=== PATIENT | male | born 1990 | race Caucasian/White ===

== ENCOUNTER 2016-07-08 07:52 | Emergency (ER) ==
[2016-07-08 08:36] LABS: URINE CULTURE NEEDED? NO; URINE MICRO REVIEW NEEDED? NO; URINE SOURCE CLEAN CATCH
[2016-07-08 08:47] LABS: BILIRUBIN URINE NEGATIVE (NEGATIVE); BLOOD URINE NEGATIVE (NEGATIVE); COLOR YELLOW; GLUCOSE URINE NEGATIVE (NEGATIVE); LEUKOCYTES URINE NEGATIVE (NEGATIVE); NITRITE URINE NEGATIVE (NEGATIVE); PH URINE 6.5; PROTEIN URINE TRACE mg/dL (NEGATIVE); SP GRAVITY URINE 1.026; TURBIDITY URINE CLEAR (CLEAR); UROBILINOGEN URINE 4 mg/dL (NORMAL)
[2016-07-08 08:52] LABS: UR EPITHELIAL CELLS <10 /HPF (<10); URINE BACTERIA NEGATIVE /HPF; URINE RBC <10 /HPF (<10); URINE WBC <10 /HPF (<10)
--- NOTE | 2016-07-08 08:58 | PROVIDER DOCUMENTATION ---
HPI-General Adult - History of Present Illness -Gen Adult Nature of Presenting Problems: Russ presents with two days of intermittent flank pain that radiates to the back. He reports having left sided flank pain yesterday and feeling nauseated. The flank pain has returned today along with nausea and trouble urinating. He denies any gross blood in the urine, any bulging in his testicles , or one testicle larger than another. He denies fever, diarrhea, constipation , or SOB. Location of Pain/Injury: reports: abdomen (Left flank), back (Left flank with radiating) Pain Radiation: reports: flank (L) Quality of Pain: reports: aching, sharp Severity: reports: moderate Onset/Duration: reports: 24 hours ago Timing: reports: improving, intermittent Context/Activities at Onset: reports: none Modifying Factors: improves with: nothing Associated Symptoms: reports: back/neck pain (Lower left back radiation), nausea . denies: anxiety, chest pain, constipation, cough, diarrhea, EENT symptoms, genitourinary problems, shortness of breath, vomiting Similar Symptoms Previously?: Yes (Yesterday) Recently seen or treated by another doctor?: No <Santos Ulloa - Last Filed: 07/08/16 08:52> <Sly Goel - Last Filed: 07/08/16 13:39> - General Chief Complaint: Flank Pain Stated Complaint: kidney pain Time Seen by Provider: 07/08/16 08:39 Allergies/Adverse Reactions: Patient Allergies Allergy/AdvReac Type Severity Reaction Status Date / Time azithromycin [From Zithromax] Allergy HIVES Verified 07/08/16 09:12 egg Allergy HIVES Verified 07/08/16 09:12 Home Medications: Home Medication List Medication Instructions Recorded Confirmed Last Taken Type Ondansetron Odt [Zofran 4 mg Odt] 4 mg PO Q6H PRN PRN #10 tablet 07/08/16 Unknown Rx Pantoprazole [Protonix] 40 mg PO DAILY@0700 #30 tablet 07/08/16 Unknown Rx Tramadol [Ultram] 50 mg PO TID #30 tablet 07/08/16 Unknown Rx Review of Systems - Adult - REVIEW OF SYSTEMS - ADULT Constitutional: reports: see HPI. denies: chills, fever, night sweats, weight gain, weight loss Eyes: reports: no symptoms reported Ears, Nose, Mouth & Throat: reports: no symptoms reported Cardiovascular: reports: no symptoms reported, see HPI. denies: chest pain, palpitations Respiratory: reports: no symptoms reported, see HPI. denies: cough, dyspnea on exertion, shortness of breath Gastrointestinal: reports: abdominal pain (Left side), nausea. denies: hematemesis, constipation, diarrhea, rectal bleeding, vomiting Genitourinary: reports: flank pain, other (Reports some intermittent difficulty urinating with the flank pain). denies: dysuria, frequency, frequent UTI's, incontinence Integumentary: reports: no symptoms reported. denies: hives, itching Neurological: reports: no symptoms reported. denies: dizziness/vertigo, headache/migraines Psychiatric: reports: no symptoms reported. denies: alcohol/drug dependence Endocrine: reports: no symptoms reported. denies: change in skin pigment, increased thirst, polyuria Hematologic/Lymphatic: reports: no symptoms reported Allergic/Immunologic: reports: no symptoms reported All Other Systems: Reviewed and Negative <Santos Ulloa M - Last Filed: 07/08/16 08:52> Past History - Adult - PAST MEDICAL HISTORY-ADULT Review of Records: reports: Old Records Reviewed, Nursing Assessment Review, Medications Reviewed, Social history reviewed & non-contributory. Major Childhood Illnesses: reports: denies history Cardiovascular: reports: denies history Respiratory: reports: denies history Gastrointestinal: reports: denies history Genitourinary: reports: denies history Musculoskeletal: reports: denies history Hand Dominance: Right Handed Neurological: reports: denies history Psychiatric: reports: denies history Endocrine/Immune: reports: denies history Other Conditions: reports: denies history - PRIOR SURGERIES/PROCEDURES Surgical/Procedure History: reports: none - PRIOR HOSPITALIZATIONS Prior Hospitalizations: reports: none - IMMUNIZATION STATUS Childhood Immunizations: See Nurse Assessment Flu Vaccine: See Nurse Assessment - FAMILY HISTORY Family History: reviewed, not pertinent - SOCIAL HISTORY Smoking: less than 1 pack/day Substance Use: none/never Alcohol Use Frequency: never Living Situation: family <Santos Ulloa M - Last Filed: 07/08/16 08:52> Physical Exam-General - CONSTITUTIONAL General Appearance: appears well, alert, no apparent distress - EYES Eyes: PERRL/EOMI - HEAD, EARS, NOSE, MOUTH & THROAT HENMT: normocephalic/atraumatic, moist mucous membranes, pharynx normal - NECK Neck: non-tender, full range of motion, supple, normal inspection - RESPIRATORY Respiratory: chest non-tender, lungs clear, normal breath sounds, no pleuratic chest pain, no respiratory distress, no accessory muscle use - CARDIOVASCULAR Cardiovascular: normal peripheral pulses, regular rate, rhythm, no edema, no gallop, no JVD, no murmur - GASTROINTESTINAL (ABDOMEN) Abdominal Exam: normal bowel sounds, soft, no organomegaly, no pulsatile mass, tenderness (Mild left sided flank tenderness) - LYMPHATIC Lymphatic: no adenopathy - MUSCULOSKELETAL Back Exam: normal inspection, other (mild left sided flank tenderness) Extremity: normal range of motion, non-tender, normal inspection - SKIN Integumentary: normal color, normal turgor - NEUROLOGIC Neurologic: fiber picker II-XII nml as tested, grossly normal, no motor/sensory deficits - PSYCHIATRIC Psych/Mental Status: normal mood/affect, normal thought content, normal thought process, oriented x 3 <Santos Ulloa - Last Filed: 07/08/16 08:52> Progress - PLAN OF CARE/RESULTS Progress/Plan/Lab Results: physician spoke with Dr Cruz [id number]-- patient refuses admission, plans to sign out ama. Laboratory Tests 07/08/16 07/08/16 07/08/16 08:09 08:09 11:40 WBC RBC Hgb Hct MCV MCH MCHC RDW Std Deviation Plt Count MPV Immature Gran % (Auto) Neut % (Auto) Lymph % (Auto) [place] % (Auto) Eos % (Auto) Baso % (Auto) Immature Gran # (Auto) Neut # (Auto) Lymph # (Auto) Bradford # (Auto) Eos # (Auto) Baso # (Auto) Sodium 140 Potassium 3.7 Chloride 104 Carbon Dioxide 22 L Anion Gap 14 BUN 14 Creatinine 1.0 Estimated GFR/1.73 m2 > 60 BUN/Creatinine Ratio 14 Glucose 106 H Calculated Osmolality 280 Calcium 8.6 L Total Bilirubin 1.67 H AST 17 ALT 18 Alkaline Phosphatase 51 Total Protein 6.3 Albumin 4.3 Globulin 2.0 Albumin/Globulin Ratio 2.2 Amylase 29 Lipase 36 Urine Source CLEAN CATCH Urine Color YELLOW Urine Turbidity CLEAR Urine pH 6.5 Ur Specific [place] 1.026 Urine Protein TRACE A Ur Glucose (Stick) NEGATIVE Ur Ketones (Stick) NEGATIVE Urine Blood NEGATIVE Urine Nitrite NEGATIVE Urine Bilirubin NEGATIVE Urobilinogen Dipstick 4 A Urine Leukocytes NEGATIVE Urine WBC (Auto) <10 Urine RBC (Auto) <10 U Epithel Cells (Auto) <10 Urine Bacteria (Auto) NEGATIVE Urine Opiates Screen NONE DETECTED Ur Oxycodone Screen NONE DETECTED Ur Methadone, Qual NONE DETECTED Ur Barbiturates Screen NONE DETECTED Ur Phencyclidine Scrn NONE DETECTED Ur Amphetamines Screen NONE DETECTED U Benzodiazepines Scrn NONE DETECTED Urine Cocaine Screen NONE DETECTED U Cannabinoids Screen NONE DETECTED 07/08/16 11:40 WBC 6.92 RBC 3.89 L Hgb 12.5 L Hct 34.2 L MCV 87.9 MCH 32.1 H MCHC 36.5 RDW Std Deviation 16.7 H Plt Count 131 MPV 10.9 H Immature Gran % (Auto) 0.3 Neut % (Auto) 72.0 Lymph % (Auto) 17.2 L [place] % (Auto) 8.1 Eos % (Auto) 2.0 Baso % (Auto) 0.4 Immature Gran # (Auto) 0.02 Neut # (Auto) 4.98 Lymph # (Auto) 1.19 L [place] # (Auto) 0.56 Eos # (Auto) 0.14 Baso # (Auto) 0.03 Sodium Potassium Chloride Carbon Dioxide Anion Gap BUN Creatinine Estimated GFR/1.73 m2 BUN/Creatinine Ratio Glucose Calculated Osmolality Calcium Total Bilirubin AST ALT Alkaline Phosphatase Total Protein Albumin Globulin Albumin/Globulin Ratio Amylase Lipase Urine Source Urine Color Urine Turbidity Urine pH Ur Specific [place] Urine Protein Ur Glucose (Stick) Ur Ketones (Stick) Urine Blood Urine Nitrite Urine Bilirubin Urobilinogen Dipstick Urine Leukocytes Urine WBC (Auto) Urine RBC (Auto) U Epithel Cells (Auto) Urine Bacteria (Auto) Urine Opiates Screen Ur Oxycodone Screen Ur Methadone, Qual Ur Barbiturates Screen Ur Phencyclidine Scrn Ur Amphetamines Screen U Benzodiazepines Scrn Urine Cocaine Screen U Cannabinoids Screen Orders Category Date Time Status Saline Loc DIRECTED Care 07/08/16 11:23 Active NPO Diet 07/08/16 11:23 Active RENAL STONE SEARCH [CT] Stat Exams 07/08/16 09:09 Draft AMYLASE [CHEM] Stat Lab 07/08/16 11:40 Completed CBC WITH ELECTRONIC DIFF [HEME] Stat Lab 07/08/16 11:40 Completed COMPREHENSIVE METABOLIC PANEL [CHEM] Stat Lab 07/08/16 11:40 Completed LIPASE [CHEM] Stat Lab 07/08/16 11:40 Completed URINALYSIS W/POSS RFLX CULT [URINALYSIS] Stat Lab 07/08/16 08:09 Completed URINE DRUG SCREEN Stat Lab 07/08/16 08:09 Completed Ketorolac [Toradol] Med 07/08/16 09:09 Discontinued 60 mg IM NOW ONE Ondansetron Odt [Zofran Odt] Med 07/08/16 09:08 Discontinued 4 mg PO NOW ONE Vital Signs - 24 hr 07/08/16 07/08/16 07/08/16 07:58 12:00 13:30 Temperature 98.4 F Pulse Rate 54 L 55 L 71 Respiratory 20 18 16 Rate Blood Pressure 169/89 129/82 144/88 O2 Sat by Pulse 100 99 100 Oximetry - CT/MRI 1 CT Study: Renal Stone Impression: Abnormal CT Results: Cholelithiasis <Sly Goel - Last Filed: 07/08/16 13:39> Departure <Santos Ulloa - Last Filed: 07/08/16 08:52> - Departure Time of Disposition Order: 13:36 Certified Medical Emergency: Emergent <Sly Goel - Last Filed: 07/08/16 13:39> - Departure DIAGNOSIS: Cholelithiasis, Right upper quadrant abdominal pain Disposition: AGAINST MEDICAL ADVICE 07 Condition: Stable Additional Instructions: The [facility] Qualifications for [facility]: * Live in [facility] * 18 - 64 years of age * Have no form of health insurance * Not covered by Medicaid, Medicare, Disability benefits or VA benefits * Meet the financial guidelines In order to be screened for services, patients must first call to answer a few questions and make a screening appt: Phone #: [phone] Services Provided by [facility]: * Primary Care: treatment for acute or chronic illness in adults * HAND DRAWER IN exams * Blood work/ BP monitoring * Prescription meds (no controlled drugs) * Health education classes * Dental exams, x-rays and extractions Services that ARE NOT provided: * Orthopedic referrals * Pain management or narcotics * testing, control * Physicals or paperwork required by school, work or for legal proceedings * STD testing or treatment * Immunizations * Eye exams, hearing tests Instructions: Cholelithiasis Physician Attestation - Physician Attestation I, the provider, attest to the following statement:: Santos Ulloa Physician documentation Attestation:: This documentation recorded by the scribe accurately reflects the service I personally performed and the decisions made by me. <Sly Goel - Last Filed: 07/08/16 13:39>
[2016-07-08] MEDS ORDERED: ZOFRAN ODT PO ONE (09:08)
[2016-07-08] MEDS ORDERED: TORADOL IM ONE (09:09)
[2016-07-08 09:44] LABS: UR AMPHETAMINES QUAL NONE DETECTED (NONE DETECT); UR BARBITUATES QUAL NONE DETECTED (NONE DETECT); UR BENZODIAZEPIN QUAL NONE DETECTED (NONE DETECT); UR CANNABINOIDS QUAL NONE DETECTED (NONE DETECT); UR COCAINE QUAL NONE DETECTED (NONE DETECT); UR METHADONE QUAL NONE DETECTED (NONE DETECT); UR OPIATES QUAL NONE DETECTED (NONE DETECT); UR OXYCODONE QUAL NONE DETECTED (NONE DETECT); UR PCP QUAL NONE DETECTED (NONE DETECT)
--- NOTE | 2016-07-08 10:11 | Diag Imaging Result Document ---
PROCEDURE NAME: RENAL STONE SEARCH - 07/08/2016 CT UROGRAM WITHOUT CONTRAST: FINDINGS: The visualized portion of the chest is unremarkable. There is splenomegaly. The spleen exceeds 17 cm in AP dimension. There is no evidence of nephrolithiasis or hydronephrosis. There are multiple calcified gallstones. The gallbladder is not distended or inflamed in appearance. The appendix is normal in appearance. There is no evidence of bowel obstruction or significant adenopathy. No free air is present. Some mildly prominent mesenteric nodes are present, none of which exceed 1 cm in short axis dimension. There is no evidence of free fluid. The regional skeleton is intact. IMPRESSION: Cholelithiasis. Splenomegaly. No evidence of ureterolithiasis or obstruction. The possibility of Rory-Benitez virus disease cannot be excluded.
[2016-07-08 11:59] LABS: MANUAL DIFF NEEDED? NO
[2016-07-08 12:03] LABS: BASO% 0.4 % (0.0-0.8); EOS# 0.14 X1000 (0.0-0.7); HEMATOCRIT 34.2 % (42.0-52.0); HEMOGLOBIN 12.5 g/dL (14.0-18.0); IMM GRAN# 0.02 X1000 (0.0-0.04); IMM GRAN% 0.3 % (0.0-0.5); LYMPH# 1.19 X1000 (1.2-3.4); LYMPH% 17.2 % (20.5-51.1); MCH 32.1 PG (27-31); MCHC 36.5 g/dL (33-37); MCV 87.9 FL (81-99); MONO# 0.56 X1000 (0.11-0.59); MONO% 8.1 % (1.7-9.3); MPV 10.9 FL (7.4-10.4); PLT 131 X1000 (130-400); RBC 3.89 XMIL (4.7-6.1)
[2016-07-08 12:25] LABS: AGAP 14; ALBUMIN 4.3 g/dL (3.5-5.0); ALKALINE PHOSPHATASE 51 U/L (32-122); AMYLASE 29 U/L (20-200); BUN 14 mg/dL (8-22); CALCIUM 8.6 mg/dL (8.8-10.2); CHLORIDE 104 mmol/L (98-107); COSMO 280; GOT 17 U/L (10-34); GPT 18 U/L (10-44); LIPASE 36 U/L (13-60); POTASSIUM 3.7 mmol/L (3.5-5.1); SODIUM 140 mmol/L (136-145); TCO2 22 mmol/L (25-35); TOTAL BILIRUBIN 1.67 mg/dL (0.20-1.00); TOTAL PROTEIN 6.3 g/dL (6.3-8.3)
[2016-07-08 13:31] VITALS: BP 144/88
== END 2016-07-08 13:47 | disposition left against medical advice (07) ==
LOC: ED 07:52
DX: K80.20 Calculus of gallbladder without cholecystitis without obstruction (principal); R10.11 Right upper quadrant pain; R11.0 Nausea; R30.0 Dysuria; F17.210 Nicotine dependence, cigarettes, uncomplicated; R16.1 Splenomegaly, not elsewhere classified
CPT/HCPCS: 74176; 80053; 81001; 82150; 83690; 85025; G0480; J1885; 80324; 80345; 80346; 80349; 80353; 80358; 80361; 80365; 83992